=== PATIENT | male | born 1980 | race African-American/Black ===

== ENCOUNTER 2022-05-14 16:06 | Outpatient (CLI) | payer OTHER, SELFPAY ==
--- NOTE | ~2022-05-14 | MM_ITS ---
EXAMINATION: MM screening [facility] [place] HISTORY: Screening mammogram TECHNIQUE: Only left craniocaudal Tomosynthesis. Imaging was performed. The patient then refused furt her imaging. COMPARISON: No prior mammogram is available for comparison at this institution. BREAST PARENCHYMAL COMPOSITION: There are scattered areas of fibroglandular density. FINDINGS: No suspicious mass or architectural distortion is evident on this single left craniocaudal projection. This is a limited and incomplete examination. IMPRESSION: Limited incomplete examination BI-RADS Category 0: Incomplete: Needs additional imaging evaluation.; Left MLO and right MLO and CC v iews are necessary for complete screening examination Reviewed, dictated and finalized at location A. IMPRESSION: Limited incomplete examination BI-RADS Category 0: Incomplete: Needs additional imaging evaluation.; Left MLO and right MLO and CC views are necessary for complete screening examination
== END 2022-05-14 16:07 | disposition home or self-care (01) ==
PROVIDERS: Visit Provider Nurse Practitioner Obstetrics & Gynecology
DX: Z12.31 Encounter for screening mammogram for malignant neoplasm of breast (principal); R92.8 Other abnormal and inconclusive findings on diagnostic imaging of breast
CPT/HCPCS: 77063; 77067

== ENCOUNTER → 2022-08-07 08:18 | Outpatient (CLI) | payer OTHER, SELFPAY ==
--- NOTE | ~2022-08-07 | XR_ITS ---
Right Shoulder Technique: AP and scapular Y views were obtained. Clinical History: Pain Findings: No fracture or dislocation is seen. Osseous alignment is anatomic. The glenohumeral and acr omioclavicular joint spaces are preserved. Soft tissues are unremarkable. Impression: Unremarkable right shoulder radiographs. Reviewed, dictated and finalized at [facility]. CY CHECKER Impression: Unremarkable right shoulder radiographs.
== END ==
PROVIDERS: Visit Provider Chiropractor
DX: M25.511 Pain in right shoulder (principal); W19.XXXA Unspecified fall, initial encounter
CPT/HCPCS: 73030

== ENCOUNTER → 2022-08-15 10:33 | Outpatient (CLI) | payer OTHER, SELFPAY ==
--- NOTE | ~2022-08-15 | MR_ITS ---
MRI of the right shoulder Technique: Axial proton-density fat-sat images, coronal proton density fat-sat and T2 fat-sat images, and sagittal T1-weighted and T2 fat-sat images were acquired. Clinical History: Labral tear, rotator cuff tear Findings: No significant degenerative change at the AC joint. Coracoclavicular, coracoacromial, and c oracohumeral ligaments are intact. Supraspinatus and infraspinatus tendons are intact, without partial or full-thickness tear. Subscapul floridalma tendon is intact. Tendon of the long head of the biceps is intact. No labral tear identified. Inferior glenohumeral ligament is intact. No degenerative change or effusion of the glenohumeral join t. No fluid distention of the subacromial/subdeltoid bursa. There is minimal fluid distention of the biceps tendon sheath in the bicipital groove. No muscle atrophy or edema. Impression: Focal mild fluid distention of the biceps tendon sheath. Consider biceps tenosynovitis. No labral or rotator cuff tear identified. Reviewed, dictated and finalized at [facility]. IER OPERATOR Impression: Focal mild fluid distention of the biceps tendon sheath. Consider biceps tenosy novitis. No labral or rotator cuff tear identified.
== END ==
PROVIDERS: PCP Chiropractor; Visit Provider Chiropractor
DX: M75.101 Unspecified rotator cuff tear or rupture of right shoulder, not specified as traumatic (principal); R93.6 Abnormal findings on diagnostic imaging of limbs
CPT/HCPCS: 73221

== ENCOUNTER 2024-03-21 20:45 | Emergency (ER) | payer OTHER, SELFPAY ==
--- NOTE | ~2024-03-21 | XR_ITS ---
EXAM: XR knee LT min 4V DATE: 03/21/2024 22:33 HISTORY: L knee injury . COMPARISON: None available. FINDINGS: Normal mineralization. No fracture or dislocation. No lytic or blastic lesion. Joint space s are maintained. No erosion or periosteal change. Soft tissues within normal limits. IMPRESSION: No acute osseous finding in the left knee. Reviewed, dictated and finalized at location K.
[2024-03-21 21:00] VITALS: BP 137/90; PULSE 99; RESP 18; TEMP 36.6; O2SAT 100
--- NOTE | 2024-03-21 23:46 | ED.LOWEXIN ---
HPI - Extremity Injury (Lower) General Chief Complaint: Extremity Injury, Lower Stated Complaint: L knee injury Time Seen by Provider: 03/21/24 23:11 Source: patient Mode of arrival: ambulatory Limitations: no limitations History of Present Illness HPI Narrative: This is a 44-year-old female who presents to the ED for chief complaint of left knee injury while playing kickball tonight. Patient states that she was rounding the bases when she tried to avoid being tagged out. States that she ran and jumped onto the 2nd base. States she landed directly on her left foot and felt a shift in her left knee. States that weight-bearing has been difficult but she is able to do it. Denies numbness, weakness or any further sites of pain or injury. Related Data Allergies Allergy/AdvReac Type Severity Reaction Status Date / Time No Known Allergies Allergy Verified 03/21/24 21:05 Review of Systems Review of Systems: All systems as dictated in HPI Exam Narrative: GENERAL: Well-appearing, well-nourished, and in no acute distress. HEAD: Normocephalic, atraumatic. EYES: PERRLA and EOMI. ENT: Nares clear, no rhinorrhea or epistaxis. Mucous membranes moist. Oropharynx without tonsillar hypertrophy exudate or other lesions. NECK: Supple. No adenopathy or masses. CHEST: No respiratory distress. Clear to auscultation. No wheezes rales or rhonchi HEART: Regular rate and rhythm. No murmur heard. Normal peripheral pulses. ABDOMEN: Soft, nontender, nondistended, normal active bowel sounds. MSK: LLE: mild swelling. no deformity. Patella tracks well. Mild tenderness to the lateral knee. No joint laxity. Neurovascularly intact distally RLE: benign SKIN: Warm, dry, no rash. NEURO: Alert and oriented x4. No focal deficits. PSYCH: Normal mood and affect. Course Vital Signs Vital signs: Vital Signs Temperature 98 F 03/21/24 21:00 Pulse Rate 99 03/21/24 21:00 Respiratory Rate 18 03/21/24 21:00 Blood Pressure 137/90 03/21/24 21:00 Pulse Oximetry 100 03/21/24 21:00 Oxygen Delivery Room Air 03/21/24 21:00 Temperature 98 F 03/21/24 21:00 Pulse Rate 74 03/22/24 00:05 Respiratory Rate 16 03/22/24 00:05 Blood Pressure 141/97 H 03/22/24 00:05 Pulse Oximetry 100 03/22/24 00:05 Oxygen Delivery Room Air 03/21/24 21:00 MDM - Extremity Injury (Lower) MDM Narrative Medical decision making narrative: This is a 44-year-old female who presents to the ED with chief complaint of left knee injury while playing kickball tonight. Vitals are normal. Exam shows mild tenderness to the lateral joint line of the knee. Mild swelling present. Ambulatory with some difficulty. Left knee x-ray showed no acute osseous findings. Still remains likely that patient suffered a bit of a soft tissue injury. She will be placed in knee immobilizer and given crutches. Ortho referral given. Pt will be discharged in stable condition. Return precautions given and supportive measures discussed. Pt is understanding and agreeable with plan for discharge and follow-up with PCP. Discharge Plan Discharge Clinical Impression: Injury of knee, left Patient Disposition: Home, Self-Care Condition: Stable Instructions: Antibiotic Form Additional Instructions: your exam and imaging today are reassuring overall. There may be a soft tissue injury still present. Please use the knee immobilizer the next week along with crutches and remain weight-bearing as tolerated. Continue with meloxicam for pain control. Follow-up with PCP and orthopedics If you have any new or worsening symptoms please return to the ER for further evaluation. Follow-up/Referrals: Alec Ro MD [Physician] - Darvin,Alvaro Reece DC [Primary Care Provider] - Time of Disposition: 23:49
[2024-03-22 00:05] VITALS: BP 141/97; PULSE 74; RESP 16; O2SAT 100
== END 2024-03-22 00:10 | disposition home or self-care (01) ==
PROVIDERS: Emergency Provider Physician Assistant; PCP Chiropractor
DX: S89.92XA Unspecified injury of left lower leg, initial encounter (principal); X50.0XXA Overexertion from strenuous movement or load, initial encounter
CPT/HCPCS: 73564; 99283

== ENCOUNTER 2024-03-24 14:59 | Outpatient (CLI) | payer OTHER, SELFPAY ==
--- NOTE | ~2024-03-24 | MR_ITS ---
MRI of the left knee Clinical history: Pain Technique: Coronal proton density and proton density-weighted images, sagittal proton-density and T2 fat-sat images, and axial proton-density fat-saturated images were acquired. Findings: There is probable complete acute tear of the proximal ACL. The tendon itself is hyperintens e with wavy morphology at the mid to distal portions. Posterior cruciate ligament is intact. Medial c ollateral ligament and the lateral collateral ligament complex are intact. Popliteus tendon is intact . . Probable peripheral vertical tear of the posterior horn of the medial meniscus. Lateral meniscus in tact. There is minimal chondromalacia patella. Remaining articular cartilage throughout the knee is well pr eserved. There are mild bone contusions at the central aspect of the lateral femoral condyle and post erolateral tibial plateau, compatible with sequelae of recent pivot shift injury. Extensor mechanism intact. Moderate joint effusion present. Small Rodriguez cyst present. Impression: Acute, complete tear at the proximal ACL. Probable peripheral vertical tear of the posterior horn of the medial meniscus. Mild bone contusions at the central aspect of the lateral femoral condyle and posterolateral tibial p lateau, compatible with sequelae of recent pivot shift injury. Moderate joint effusion and small Rodriguez's cyst. Reviewed, dictated and finalized at location . Impression: Acute, complete tear at the proximal ACL. Probable peripheral vertical tear of the posterior horn of the medial meniscus. Mild bone contusions at the central aspect of the lateral femoral condyle and p osterolateral tibial plateau, compatible with sequelae of recent pivot shift in jury. Moderate joint effusion and small Rodriguez's cyst.
== END 2024-03-24 15:00 ==
LOC: GOSHIMG 15:04
PROVIDERS: Visit Provider Chiropractor
DX: S83.242A Other tear of medial meniscus, current injury, left knee, initial encounter (principal); S83.512A Sprain of anterior cruciate ligament of left knee, initial encounter; X58.XXXA Exposure to other specified factors, initial encounter; M25.462 Effusion, left knee; M71.22 Synovial cyst of popliteal space [Baker], left knee
CPT/HCPCS: 73721

== ENCOUNTER 2025-05-19 11:55 | Outpatient (CLI) | payer OTHER, SELFPAY ==
--- NOTE | ~2025-05-19 | XR_ITS ---
EXAMINATION: XR hip RT min 2V, 05/19/2025 12:06 CDT HISTORY: PAIN x 6 weeks, no surgery, no injury COMPARISON: No comparisons available. Findings: No acute fracture or malalignment. No significant degenerative changes. Soft tissues unremarkable. Impression: No acute fracture or malalignment. Reviewed, dictated and finalized at location P. Impression: No acute fracture or malalignment.
== END 2025-05-19 11:56 | disposition home or self-care (01) ==
PROVIDERS: Visit Provider Chiropractor
DX: M25.551 Pain in right hip (principal)
CPT/HCPCS: 73502